=== PATIENT | female | born 1990 | race Caucasian/White ===

== ENCOUNTER 2019-11-26 08:49 | Inpatient (IN) ==
[2019-11-26] MEDS ORDERED: OXYTOCIN 30 UNITS/500 ML BAG IV PRN ×3 (14:04→21:29)
[2019-11-26 14:30] LABS: Hematocrit (blood only) 39.6 % (37-47); Hemoglobin 14.2 g/dL (12.0-16.0); Mean Corpuscular Hemoglobin 30.5 pg (25-34); Mean Corpuscular Volume 85.2 fL (80-100); Mean Platelet Volume 9.9 fL (7.4-10.4); Platelet Count 279 K/uL (130-400); RDW Coefficient of Variation 13.6 % (11.5-14.5); RDW Standard Deviation 42.2 fL (36.4-46.3); Red Blood Count 4.65 M/uL (4.2-5.4); White Blood Count 16.76 K/uL (4.8-10.8)
[2019-11-26 14:37] LABS: Mean Corpuscular Hgb Conc 35.9 g/dL (32-36)
[2019-11-26] MEDS: LACTATED RINGER'S 1,000 ML IV PRN ×2 (14:50→17:46)
--- NOTE | 2019-11-26 15:17 | History & Physical Report ---
Date of Service November 26, 2019 Assessment & Plan (1) Encounter for supervision of normal in multigravida: (2) Post-dates : admit, iv, labs, pitocin and then plan arom. fhts categ 1 History of Present Illness Chief Complaint: planned induction Primary Care Provider: NO PCP 29yo at 41+wks ega presents to L&D with above cc. Notes intermittent runs of ctx but not consistent. No rom, no vb. +FM. pnc c/b postdates, h/o migraines with aura pnl rh pos, rubella immune, gbs negative obh: x 1 gynh: no stds, normal pap smears pmh: migraines with aura psh: knee surgery, d&c Allergies Allergy/AdvReac Type Severity Reaction Status Date / Time No Known Allergies Allergy Verified 11/24/19 11:08 Home Medications Home Medications Medication Instructions Recorded Confirmed Type prenat.vits,vidya,iba-trxe-niexd 1 tab PO DAILY 05/19/19 11/24/19 History Patient History Family History (Updated 05/26/19 @ 08:01 by Fidelina Melendez) Aunt Breast cancer Grandfather (Paternal) Heart disease Colorectal cancer Hypertension Dyslipidemia Grandmother (Paternal) Heart disease Diabetes Hypertension Dyslipidemia Sister Depression Thyroid disease Grandfather (Maternal) Diabetes Mother Graves disease Rheumatoid arthritis Thyroid disease Grandmother (Maternal) Hypertension Thyroid disease Uncle Cancer Other AA (alcohol abuse) Myocardial infarction Social History (Updated 05/26/19 @ 08:02 by Fidelina Melendez) Preferred Language: Chinese Communication Ability: Effective Beliefs That Will Affect Care: None marital status: Current Living Situation: Spouse Feels Safe at Home: Yes Smoking Status: Never smoker Hx Alcohol Use: Yes Hx Substance Use: No Dental Care, Regularly: Yes Physical Activity Frequency: 1-2 Times per Week Review of Systems as per Subjective / HPI Physical Exam Constitutional: WD/WN, vitals as above Respiratory: normal respiratory effort, lungs clear to auscultation Cardiovascular: Rate/Rhythm: regular rate and regular rhythm Gastrointestinal (Abdomen): soft gravid nt efw 8-9# Musculoskeletal: no edema nontender calves Neurologic: grossly normal Psychiatric: A+Ox3, euthymic affect Genitourinary: Manual OB Exam: + cervical dilation 3 cm, + cervical effacement 50% and + station -2 OB Exam Monitor Tracing: + external FHT monitor used (140 mod variability), + external uterine monitor used (q3), + category I and + normal FHT variability Results & Data Vital Signs (Past 12 Hours) Vital Signs Pulse BP 11/26/19 14:52 104 H 134/75 11/26/19 14:10 123 H 137/76 Code Status & VTE Plan VTE Prophylaxis Plan VTE Prophylaxis will be ordered: No Coding Level of Care Code None Diagnoses Encounter for supervision of normal in multigravida Z34.80 Post-dates O48.0
--- NOTE | 2019-11-26 16:54 | Labor Progress Brief Note ---
Date of Service November 26, 2019 Subjective Reason For Note: Routine Evaluation feeling ctx, on pit Assessment & Plan (1) Post-dates : (2) Encounter for supervision of normal in multigravida: (3) Encounter for induction of labor: pitocin infusing, not sure if successful arom, cont with induction. pt may desire epidural soon which is ok. Physical Exam Constitutional: WD/WN, vitals as above Neurologic: grossly normal Psychiatric: A+Ox3, euthymic affect Genitourinary: Manual OB Exam: + cervical dilation 3 cm, + cervical effacement 50%, + station -2 and + amniotic fluid (attempted arom, little result) OB Exam Monitor Tracing: + external FHT monitor used (130 mod variability), + external uterine monitor used (q1-3, pit at 3), + category I and + normal FHT v ariability Results & Data Vital Signs (Past 12 Hours) Vital Signs Temp Pulse Resp BP 11/26/19 16:49 100 H 119/67 11/26/19 15:49 95 H 130/72 11/26/19 14:52 104 H 134/75 11/26/19 14:45 99.0 F 104 H 18 134/75 11/26/19 14:10 123 H 137/76 Coding Level of Care Code None Diagnoses Post-dates O48.0 Encounter for supervision of normal in multigravida Z34.80 Encounter for induction of labor Z34.90
[2019-11-26] MEDS ORDERED: fentaNYL citrate 100 MCG/2 ML VIAL ONE (16:55)
[2019-11-26] MEDS ORDERED: BUPIVACAINE 0.25% 30 ML VIAL ONE (16:55)
[2019-11-26] MEDS ORDERED: ePHEDrine sulfate 50 MG/ML AMP ONE (16:55)
[2019-11-26] MEDS ORDERED: fentaNYL 2MCG/ML ROPIV 1.25MG/ML 100 ML BAG EPI ONE (16:56)
--- NOTE | 2019-11-26 17:13 | Anesthesiology Consultation ---
Date of Service November 26, 2019 Assessment & Plan (1) Encounter for pre-operative examination: Chart Review Chart Review: Acceptable Risk for Labor Epidural Consults Requested none ASA ASA2 Proposed Anesthesia Anesthesia Type: Labor Epidural Risk / Benefits Reviewed With: PT / POA / Parent / Guardian, Accepts Plan and Informed Consent Obtained History Height/Weight Height: 5 ft 8 in Weight: 92.986 kg Allergies Allergy/AdvReac Type Severity Reaction Status Date / Time No Known Allergies Allergy Verified 11/24/19 11:08 Medications Home Medications Medication Instructions Recorded Confirmed Last Taken prenat.vits,vidya,duv-qtcf-vllur 1 tab PO DAILY 05/19/19 11/26/19 11/25/19 23:00 Active Medications Generic Name Dose Route Start Last Admin Trade Name Freq PRN Reason Stop Dose Admin Lactated Ringer's 1,000 mls @ 125 mls/hr 11/26/19 14:04 11/26/19 16:45 Lr IV 11/28/19 14:03 999 mls/hr .Q8H PRN Infusion L&D Protocol Protocol Oxytocin 30 units in 500 mls @ 3 mls/hr 11/26/19 14:04 11/26/19 16:15 Pitocin IV 11/28/19 14:03 0.18 units/hr .Q24H PRN 3 mls/hr Labor Induction/Augmentation Titration Protocol 0.18 UNITS/HR Past Medical History Medical History Anxiety H/O urinary tract infection Migraine with aura No significant past medical history Exercise / Class Metabolic Activity II 4-5 Yardwork/Stairs/Walk up hill Past Family History Family History Aunt Breast cancer Grandfather (Paternal) Heart disease Colorectal cancer Hypertension Dyslipidemia Grandmother (Paternal) Heart disease Diabetes Hypertension Dyslipidemia Sister Depression Thyroid disease Grandfather (Maternal) Diabetes Mother Graves disease Rheumatoid arthritis Thyroid disease Grandmother (Maternal) Hypertension Thyroid disease Uncle Cancer Other AA (alcohol abuse) Myocardial infarction Past Surgical History Surgical History History of arthroscopic knee surgery B/L S/P dilatation and curettage Past Anesthesia History No Hx of Anesthesia Complications and No Family Hx of Anesthesia Complications History of PONV No Hx of PONV and No Hx of Motion Sickness Social History Smoking Status: Never smoker Do You Dip or Chew Tobacco: No Hx Alcohol Use: Yes alcohol intake frequency: holidays/special occasions only Hx Substance Use: No Physical Exam Vital Signs Last Vital Signs Temp 99.0 F 11/26/19 14:45 Pulse 93 H 11/26/19 16:51 Resp 18 11/26/19 14:45 BP 118/61 11/26/19 16:51 ENMT Mouth: no dentition abnormality Thyromental Distance: > or= 3.5 Finger Breadths Mallampati Class: II Neck normal visual inspection Respiratory normal respiratory effort Auscultation: lungs clear to auscultation bilaterally Cardiovascular Rate/Rhythm: regular rate and regular rhythm Testing Laboratory Results 11/26/19 14:13
[2019-11-26] MEDS ORDERED: NALOXONE HCL 1 MG in SODIUM CHLORIDE 0.9% 1000ML 1,000 ML IV PRN (17:31)
[2019-11-26] MEDS ORDERED: ePHEDrine sulfate 50 MG/ML AMP IV PRN (17:31)
[2019-11-26] MEDS ORDERED: NALOXONE HCL 0.4 MG/1 ML VIAL/CARP IV PRN (17:31)
[2019-11-26] MEDS ORDERED: fentaNYL 2MCG/ML ROPIV 1.25MG/ML 100 ML BAG EPI PRN (17:31)
[2019-11-26] MEDS ORDERED: NALBUPHINE HCL INJ 10 MG/ML AMP IV PRN (17:31)
[2019-11-26] MEDS ORDERED: ONDANSETRON INJ 2 MG/ML 2 ML VIAL IV PRN (17:31)
[2019-11-26] MEDS ORDERED: DiphenhydrAMINE HCL 50 MG/ML VIAL IV PRN (17:31)
[2019-11-26] MEDS ORDERED: OXYCODONE/ACETAMINOPHEN 5mg/325mg TAB PO PRN (21:16)
[2019-11-26] MEDS ORDERED: ACETAMINOPHEN 325 MG TAB PO PRN (21:16)
--- NOTE | 2019-11-26 21:19 | Delivery Summary ---
Vaginal Delivery Summary Date of Service November 26, 2019 The patient dilated to complete and pushed to deliver a viable male infant s 8 and 9 via from ROP position over 2nd degree perineal laceration. Mouth and nose bulb suctioned at perineum. Shoulders and body delivered with ease. was vigorous and crying at . Cord clamped at 30 seconds of life and to maternal abdomen where the cord was then doubly clamped and cut. Placenta delivered spontaneously and intact, three-vessel cord. Hemostasis achieved with dilute pitocin and uterine massage and drainage of the bladder for approximately 100 cc under sterile conditions. IV site lost and so IM pitocin administered. Laceration repaired in usual fashion with 3-0 vicryl after additional 1% local lidocaine administered for anesthesia. Cervix and sulci intact. EBL 300 cc. Mother and baby stable in recovery.
[2019-11-26] MEDS ORDERED: HYDROCORTISONE ACETATE 25 MG SUPP PR PRN (21:29)
[2019-11-26] MEDS ORDERED: BENZOCAINE 20% AER SPR 82.5 GM CAN EXT PRN (21:29)
[2019-11-26] MEDS ORDERED: OXYTOCIN 10 UNITS/ML VIAL IM ONE (21:29)
[2019-11-26] MEDS ORDERED: SUPERCREAM 0.870% 15 GM JAR EXT PRN (21:29)
[2019-11-26] MEDS ORDERED: DIPHTHERIA/TETANUS/PERTUSSIS 0.5 ML SYR/VIAL IM ONE (21:29)
[2019-11-26] MEDS: IBUPROFEN 600 MG TAB PO PRN (21:35)
--- NOTE | 2019-11-26 21:42 | Anesthesia Procedure Note ---
Date of Service November 26, 2019 Anesthesia Post Epidural Note Vital Signs Vital Signs: Temp Pulse Resp BP Pulse Ox 98.8 F 75 20 106/53 L 98 11/26/19 19:20 11/26/19 21:40 11/26/19 21:41 11/26/19 21:40 11/26/19 20:57 Pain Intensity Lower Abdomen: Pain Intensity: 0 Episiotomy/Laceration: Pain Intensity: 2 Notes Mental Status: alert / awake / arousable and participated in evaluation Nausea / Vomiting: adequately controlled Pain: adequately controlled Airway Patency, RR, SpO2: stable & adequate BP & HR: stable & adequate Hydration State: stable & adequate Neuraxial Anesthesia: was administered and sensory block is resolving Anesthetic Complications: no major complications apparent and Pt Satisfied with anesthetic care Epidural: Removed without complications and With tip intact
--- NOTE | 2019-11-27 06:57 | Obstetrical Progress Note ---
Date of Service November 27, 2019 Assessment & Plan (1) Normal delivery at term: stable, routine pp care. , rhpos, rubella immune Subjective Ambulation: ambulating normally Voiding: no voiding problems Diet Tolerance:: regular diet Lochia:: Small Feeding Type:: breast feeding no complaints. Physical Exam Constitutional WD/WN, vitals as above Respiratory normal respiratory effort, lungs clear to auscultation Cardiovascular Rate/Rhythm: regular rate and regular rhythm Gastrointestinal (Abdomen) Inspection/Auscultation: abdomen normal to inspection Percussion/Palpation: abdomen soft Fundus firm 1cm down Musculoskeletal nt calves trace edema Neurologic grossly normal Psychiatric A+Ox3, euthymic affect Results & Data Vital Signs (Past 12 Hours) Vital Signs Temp Pulse Pulse Resp BP BP Pulse Ox 11/27/19 03:33 98.1 F 71 18 107/68 11/27/19 00:30 98.1 F 71 18 107/67 11/26/19 23:10 98.6 F 83 18 115/57 L 11/26/19 22:55 75 116/55 L 11/26/19 22:40 18 117/60 11/26/19 22:25 81 120/56 L 11/26/19 22:10 87 18 114/56 L 11/26/19 21:55 68 18 116/58 L 11/26/19 21:41 20 11/26/19 21:40 75 20 106/53 L 11/26/19 21:25 74 20 108/61 11/26/19 21:10 89 20 114/54 L 11/26/19 21:00 118 H 121/58 L 11/26/19 20:57 125 H 98 11/26/19 20:52 125 H 98 11/26/19 20:47 119 H 98 11/26/19 20:44 100 H 131/60 11/26/19 20:42 107 H 97 11/26/19 20:37 112 H 99 11/26/19 20:32 126 H 99 11/26/19 20:30 112 H 137/62 11/26/19 20:27 108 H 99 11/26/19 20:22 126 H 97 11/26/19 20:21 133 H 88 L 11/26/19 20:17 111 H 98 11/26/19 20:12 116 H 98 11/26/19 20:07 91 H 99 11/26/19 20:02 111 H 98 11/26/19 20:00 110 H 130/59 L 11/26/19 19:57 106 H 100 11/26/19 19:52 99 H 99 11/26/19 19:47 85 100 11/26/19 19:45 98 H 144/64 H 11/26/19 19:42 93 H 100 11/26/19 19:37 90 99 11/26/19 19:32 86 100 11/26/19 19:31 80 18 120/60 11/26/19 19:27 81 99 11/26/19 19:22 87 99 11/26/19 19:20 98.8 F 11/26/19 19:17 75 99 11/26/19 19:16 77 18 123/57 L 11/26/19 19:12 78 100 11/26/19 19:10 83 112/65 11/26/19 19:07 77 99 11/26/19 19:04 72 107/53 L 11/26/19 19:02 75 100 11/26/19 18:59 79 114/54 L 11/26/19 18:57 84 100
[2019-11-27] MEDS: DOCUSATE SODIUM 100 MG CAP PO SCH ×2 (07:43→20:58)
[2019-11-27] MEDS: IBUPROFEN 600 MG TAB PO PRN (11:49)
--- NOTE | 2019-11-28 06:20 | Obstetrical Progress Note ---
Date of Service November 28, 2019 Assessment & Plan (1) Status post vaginal delivery: Margaret is a 29 yo on PPD 2 after at 41w - GBS -, Rh+ Rubella immune -Vitals reviewed and WNL -patient is doing clinically well discharge instructions reviewed. - After discharge will have [address] Brandon. Supervising Physician Co-Signing Physician Notes Resident Physician Supervision Note: I was present with Dr. Sawyer during the history and exam. I discussed the case with the resident and agree with the findings and plan as documented in the note. Any exceptions or clarifications are listed here: PPD#2 doing well. DC home. Instructions reviewed. Followup 6w . Documented By: Anita Dial DO Subjective Ambulation: ambulating normally Voiding: no voiding problems Passing Gas:: Yes Diet Tolerance:: regular diet Lochia:: Small Feeding Type:: breast feeding Review of Systems Constitutional: no fever, no chills and no sweats Eyes: no worsening vision Respiratory: no cough and no dyspnea Cardiovascular: no chest pain, no palpitations, no edema and no calf pain Gastrointestinal: no nausea and no vomiting Genitourinary: no dysuria and no urinary frequency Neurologic: no headache(s) Physical Exam Constitutional: WD/WN, vitals as above no acute distress Respiratory: normal respiratory effort, lungs clear to auscultation does not use accessory muscles Auscultation: no crackles, no rales, no rhonchi, no wheezes and no pleural rub Cardiovascular: Rate/Rhythm: regular rate and regular rhythm Heart Sounds: normal S1 and normal S2; no gallop, no murmur and no cardiac rub Extremities: no calf tenderness and no pedal edema Gastrointestinal (Abdomen): Inspection/Auscultation: normal bowel sounds; abdomen not distended Percussion/Palpation: abdomen soft Genitourinary: Uterus: fundus firm, palpable 2 cm below the umbilicus Results & Data Vital Signs (Past 12 Hours) Vital Signs Temp Pulse Resp BP BP Pulse Ox 11/27/19 23:15 36.3 C L 80 18 119/77 99 11/27/19 20:00 36.7 C 81 20 122/81 Resident Activity Tracking Resident Involvement: Resident Care Provided Care Provided: OB Delivery
[2019-11-28] MEDS: DOCUSATE SODIUM 100 MG CAP PO SCH (08:25)
== END 2019-11-28 14:20 | disposition home or self-care (01) | DRG 807 ==
LOC: 4S1 14:01 → 4S2 23:40

== ENCOUNTER 2025-06-30 10:06 | Inpatient (IN) ==
[2025-06-30 12:01] LABS: Hematocrit (blood only) 38.3 % (37.0-47.0); Hemoglobin 13.1 g/dl (12.0-16.0); Immature Granulocytes # (auto) 0.13 K/uL (0.01-0.20); Immature Granulocytes % (auto) 1.0 %; Mean Corpuscular Hemoglobin 29.2 pg (25.0-34.0); Mean Corpuscular Volume 85.5 fL (80.0-100.0); Platelet Count 266 K/uL (130-400); RDW Standard Deviation 43.2 fL (36.4-46.3); Red Blood Count 4.48 M/uL (4.20-5.40); White Blood Count 13.34 K/ul (4.8-10.8)
[2025-06-30 12:11] LABS: Protein Creatinine Ratio Urine 0.2 (0-0.2); Total Protein Urine Random 8.7 mg/dl (0-11.9)
[2025-06-30 12:27] LABS: Alanine Aminotransferase 10.0 U/L (7-52); Albumin Globulin Ratio 1.0 (0.9-2); Alkaline Phosphatase 138.0 U/L (34-104); Anion Gap 7.0 (3-11); Bilirubin,Total 0.5 mg/dl (0.2-1.0); Blood Urea Nitrogen 9.0 mg/dl (6-23); Calcium 9.2 mg/dl (8.6-10.3); Carbon Dioxide 23.0 mmol/L (21-32); Chloride 106.0 mmol/L (98-107); Creatinine Clr Calc Pharmacy 163.1 ml/min; Globulin 3.5 gm/dl (2.5-4.0); Glucose 84.0 mg/dl (70-99(Fasting)); Potassium 3.8 mmol/L (3.5-5.1); Sodium 136.0 mmol/L (136-145); Total Protein 7.0 gm/dl (6.0-8.3)
[2025-06-30] MEDS ORDERED: OXYTOCIN 30 UNITS/NSS 30 UNITS/500 ML BAG IV PRN (14:45)
[2025-06-30] MEDS ORDERED: LIDOCAINE 1% LOCAL 20 ML VIAL INFIL PRN (14:45)
--- NOTE | 2025-06-30 14:53 | Labor Progress Brief Note ---
Date of Service June 30, 2025 Subjective @ 38w5d sent from office this AM due to elevated BP. Her pressures were noted to occur in the setting of severe anxiety and are NOT accompanied by HOWELL, RUQ pain, N/V, vision change, or edema. c/b AMA, Polyhydramnios, anatomy showing ?enlarged heart without hydrops, considered a normal variant per MFM and was cleared to deliver at [facility]. Patient had reassuring PIH labs here at L&D, however monitoring of BP showed persistent HTN at least 4 hours apart. She was counseled on diagnosis of gHTN at term, though she and I both suspect she is hypertensive due to her severe worries about herself and baby rather than because of a true preeclampsia-spectrum condition. She notes "I'm scared I will or my baby will and I just want to know we will both get to go home alive together." Her relates that anxiety is a challenge the patient has with each , and this time has been particularly bad. Her record also indicates this has been a discussion at several prior visits. We discussed pros and cons of following the recommendation for induction given her diagnosis and gestational age. She views induction favorably and would like to proceed today. She asks that we wait to begin induction until her returns from going home to arrange childcare and other necessary errands, as she has had rapid progress with prior labors. Assessment & Plan (1) Polyhydramnios: (2) Elderly multigravida: (3) Gestational hypertension: Physical Exam Constitutional: WD/WN, vitals as above Neck: supple Respiratory: normal respiratory effort and able to speak in complete sentences; no respiratory distress Cardiovascular: Rate/Rhythm: regular rate and regular rhythm Gastrointestinal (Abdomen): Gravid / AGA, nontender Musculoskeletal: no cyanosis or clubbing, extremities motor strength 5/5 Skin: no rashes, warm and dry Neurologic: patellar DTR's 2+ bilat, sensation intact Psychiatric: A+Ox3, euthymic affect Genitourinary: FHT Cat 1 [place] T4-5 or further apart, not appreciated by patient Cvx 3/50/-2 Membranes intact Vtx presentation Results & Data Vital Signs (Past 12 Hours) Vital Signs Temp Pulse Resp BP 06/30/25 13:37 92 H 143/77 H 06/30/25 13:17 115 H 147/74 H 06/30/25 12:54 108 H 157/74 H 06/30/25 12:39 104 H 134/77 06/30/25 12:24 104 H 147/80 H 06/30/25 12:09 104 H 140/80 06/30/25 11:54 108 H 156/81 H 06/30/25 11:05 107 H 139/86 06/30/25 10:58 98.6 F 120 H 18 131/83 06/30/25 10:33 100 H 141/83 H 06/30/25 10:18 120 H 131/83 Coding Level of Care Code None Diagnoses Polyhydramnios O40.9XX0 Elderly multigravida O09.529 Gestational hypertension O13.9
[2025-06-30] MEDS: LACTATED RINGER'S 1,000 ML IV PRN (16:30)
[2025-06-30] MEDS: OXYTOCIN 30 UNITS/NSS 30 UNITS/500 ML BAG IV PRN (17:31)
[2025-06-30] MEDS: fentANYL 2 MCG/ML BUPIVacaine 0.125%-NSS 100ML BAG ONE (19:54)
[2025-06-30] MEDS ORDERED: fentANYL 2 MCG/ML BUPIVacaine 0.125%-NSS 100ML BAG EPI PRN (20:08)
[2025-06-30] MEDS ORDERED: LIDOCAINE 2%/EPINEPHRINE 1:200,000 20 ML PF EPI STA (20:08)
[2025-06-30] MEDS ORDERED: ROPIVACAINE 0.5% PF 5 MG/ML 20 ML VIAL EPI PRN (20:08)
[2025-06-30] MEDS ORDERED: SODIUM CHLORIDE 0.9% PF INJ 10 ML VIAL EPI STA (20:08)
[2025-06-30] MEDS ORDERED: NALOXONE HCL 1 MG in SODIUM CHLORIDE 0.9% 1,000 ML IV PRN (20:08)
[2025-06-30] MEDS ORDERED: BUPIVACAINE 0.25% PF 30 ML VIAL EPI STA (20:08)
[2025-06-30] MEDS: SODIUM CHLORIDE 0.9% PF INJ 10 ML VIAL ONE (20:08)
[2025-06-30] MEDS: BUPIVACAINE 0.25% PF 30 ML VIAL ONE (20:08)
[2025-06-30] MEDS ORDERED: SODIUM CHLORIDE 0.9% PF INJ 10 ML VIAL EPI PRN (20:08)
[2025-06-30] MEDS ORDERED: diphenhydrAMINE 50 MG/ML VIAL IV PRN (20:08)
[2025-06-30] MEDS ORDERED: NALOXONE HCL 0.4 MG/1 ML VIAL/CARP IV PRN (20:08)
[2025-06-30] MEDS ORDERED: LIDOCAINE 2% MPF LOCAL 5 ML VIAL EPI PRN (20:08)
[2025-06-30] MEDS ORDERED: PROMETHAZINE 6.25 MG/50.25 ML BAG IV PRN (20:08)
[2025-06-30] MEDS ORDERED: NALBUPHINE HCL INJ 10 MG/ML AMP IV PRN (20:08)
[2025-06-30] MEDS: LIDOCAINE 2%/EPINEPHRINE 1:200,000 20 ML PF ONE (20:08)
[2025-06-30] MEDS ORDERED: ONDANSETRON INJ 2 MG/ML 2 ML VIAL IV PRN (20:08)
[2025-06-30] MEDS ORDERED: BUPIVACAINE 0.25% PF 30 ML VIAL EPI PRN (20:08)
--- NOTE | 2025-06-30 20:08 | Anesthesiology Consultation ---
Date of Service June 30, 2025 Assessment & Plan Chart Review Chart Review: Patient NOT seen in Pre Admission Testing and Acceptable Risk for Labor Epidural Consults Requested none ASA ASA2 Proposed Anesthesia Anesthesia Type: Labor Epidural Risk / Benefits Reviewed With: PT / POA / Parent / Guardian, Accepts Plan and Informed Consent Obtained History Height/Weight Height: 5 ft 8 in Weight: 91.626 kg Allergies Allergy/AdvReac Type Severity Reaction Status Date / Time No Known Allergies Allergy Verified 06/30/25 08:28 Medications Home Medications Medication Instructions Recorded Confirmed Last Taken 21-iron fu-folic acid PO 12/09/24 06/30/25 Unknown [ Complete] sertraline 50 mg tablet 50 mg PO DAILY #90 tabs 01/07/25 06/30/25 Unknown Active Medications Generic Name Dose Route Start Last Admin Trade Name Freq PRN Reason Stop Dose Admin Lactated Ringer's 1,000 mls @ 125 mls/hr 06/30/25 14:45 06/30/25 16:30 Lr IV 07/02/25 14:44 125 mls/hr .Q8H PRN Administration L&D Protocol Protocol Oxytocin 30 units in 500 mls @ 6 mls/hr 06/30/25 14:45 06/30/25 19:00 Pitocin 30 Units/Nss IV 07/02/25 14:44 0.36 units/hr .Q24H PRN 6 mls/hr Labor Induction/Augmentation Titration Protocol 0.36 UNITS/HR Past Medical History Medical History (Updated 06/30/25 @ 14:53 by Vickie Mendenhall MD) History of benign breast biopsy Exercise / Class Metabolic Activity II 4-5 Yardwork/Stairs/Walk up hill Past Family History Family History Aunt Breast cancer Grandfather (Paternal) Heart disease Colorectal cancer Hypertension Dyslipidemia Grandmother (Paternal) Heart disease Diabetes Hypertension Dyslipidemia Sister Depression Thyroid disease Grandfather (Maternal) Diabetes Mother Graves disease Rheumatoid arthritis Thyroid disease Pre-diabetes Grandmother (Maternal) Hypertension Thyroid disease Uncle Cancer Other AA (alcohol abuse) Myocardial infarction Denies family history of Ovarian cancer Prostate cancer Past Surgical History Surgical History (Updated 06/30/25 @ 14:21 by Jeannie Edwards RN) S/P dilatation and curettage History of arthroscopic knee surgery B/L Past Anesthesia History No Hx of Anesthesia Complications and No Family Hx of Anesthesia Complications History of PONV No Hx of PONV and No Hx of Motion Sickness Social History Smoking Status: Never smoker Do You Dip or Chew Tobacco: No Hx Alcohol Use: No alcohol intake frequency: holidays/special occasions only Hx Substance Use: No Physical Exam Vital Signs Last Vital Signs Temp 37.0 C 06/30/25 10:58 Pulse 129 H 06/30/25 20:06 Resp 18 06/30/25 18:45 BP 119/58 L 06/30/25 20:06 Pulse Ox 98 06/30/25 20:02 ENMT Mouth: no dentition abnormality Thyromental Distance: > or= 3.5 Finger Breadths Mallampati Class: II Neck normal visual inspection Respiratory normal respiratory effort Auscultation: lungs clear to auscultation bilaterally Cardiovascular Rate/Rhythm: regular rate and regular rhythm Psychiatric Orientation: alert Testing Laboratory Results 06/30/25 11:33 06/30/25 11:33 Blood Type O Positive 06/30/25 11:43 Antibody Screen NEGATIVE 06/30/25 11:43
--- NOTE | 2025-06-30 20:10 | Anesthesiology Consultation ---
Date of Service June 30, 2025 Assessment & Plan Chart Review Chart Review: Patient NOT seen in Pre Admission Testing and Acceptable Risk for Labor Epidural Consults Requested none ASA ASA2 Proposed Anesthesia Anesthesia Type: Labor Epidural History Height/Weight Height: 5 ft 8 in Weight: 91.626 kg Allergies Allergy/AdvReac Type Severity Reaction Status Date / Time No Known Allergies Allergy Verified 06/30/25 08:28 Medications Home Medications Medication Instructions Recorded Confirmed Last Taken 21-iron fu-folic acid PO 12/09/24 06/30/25 Unknown [ Complete] sertraline 50 mg tablet 50 mg PO DAILY #90 tabs 01/07/25 06/30/25 Unknown Active Medications Generic Name Dose Route Start Last Admin Trade Name Freq PRN Reason Stop Dose Admin Lactated Ringer's 1,000 mls @ 125 mls/hr 06/30/25 14:45 06/30/25 16:30 Lr IV 07/02/25 14:44 125 mls/hr .Q8H PRN Administration L&D Protocol Protocol Oxytocin 30 units in 500 mls @ 6 mls/hr 06/30/25 14:45 06/30/25 19:00 Pitocin 30 Units/Nss IV 07/02/25 14:44 0.36 units/hr .Q24H PRN 6 mls/hr Labor Induction/Augmentation Titration Protocol 0.36 UNITS/HR Past Medical History Medical History (Updated 06/30/25 @ 14:53 by Vickie Mendenhall MD) History of benign breast biopsy Past Family History Family History Aunt Breast cancer Grandfather (Paternal) Heart disease Colorectal cancer Hypertension Dyslipidemia Grandmother (Paternal) Heart disease Diabetes Hypertension Dyslipidemia Sister Depression Thyroid disease Grandfather (Maternal) Diabetes Mother Graves disease Rheumatoid arthritis Thyroid disease Pre-diabetes Grandmother (Maternal) Hypertension Thyroid disease Uncle Cancer Other AA (alcohol abuse) Myocardial infarction Denies family history of Ovarian cancer Prostate cancer Past Surgical History Surgical History (Updated 06/30/25 @ 14:21 by Jeannie Edwards RN) S/P dilatation and curettage History of arthroscopic knee surgery B/L Social History Smoking Status: Never smoker Do You Dip or Chew Tobacco: No Hx Alcohol Use: No alcohol intake frequency: holidays/special occasions only Hx Substance Use: No Physical Exam Vital Signs Last Vital Signs Temp 37.0 C 06/30/25 10:58 Pulse 111 H 06/30/25 20:09 Resp 18 06/30/25 18:45 BP 128/62 06/30/25 20:09 Pulse Ox 98 06/30/25 20:07 ENMT Mouth: no dentition abnormality Thyromental Distance: > or= 3.5 Finger Breadths Mallampati Class: II Neck normal visual inspection Respiratory normal respiratory effort Auscultation: lungs clear to auscultation bilaterally Cardiovascular Rate/Rhythm: regular rate and regular rhythm Psychiatric Orientation: alert Testing Laboratory Results 06/30/25 11:33 06/30/25 11:33 Blood Type O Positive 06/30/25 11:43 Antibody Screen NEGATIVE 06/30/25 11:43
--- NOTE | 2025-06-30 22:09 | Labor Progress Brief Note ---
Date of Service June 30, 2025 Subjective Comfortable with epidural. Assessment & Plan (1) Gestational hypertension: Plan: Labor progressing. Known poly, AMA, gHTN. Admission and Anticipated Discharge Date Admission Date: June 30, 2025 Physical Exam Genitourinary: Generous forebag noted; AROM of this bag resulted in copious clear fluid spilling beyond bed onto floor. No cord or palpable prolapsed part; vertex well applied at end of exam. Following AROM and during a contraction, exam FHT Cat 1 [place] Q2m FSE applied Results & Data Vital Signs (Past 12 Hours) Vital Signs Temp Pulse Resp BP Pulse Ox 06/30/25 21:57 89 99 06/30/25 21:52 85 98 06/30/25 21:48 83 137/67 06/30/25 21:47 91 H 98 06/30/25 21:42 94 H 98 06/30/25 21:37 104 H 97 06/30/25 21:33 96 H 114/58 L 06/30/25 21:32 86 97 06/30/25 21:27 90 96 06/30/25 21:22 85 97 06/30/25 21:17 95 H 111/60 97 06/30/25 21:12 86 98 06/30/25 21:07 82 98 06/30/25 21:03 96 H 107/58 L 06/30/25 21:02 92 H 98 06/30/25 20:57 92 H 97 06/30/25 20:52 106 H 97 06/30/25 20:48 102 H 118/60 06/30/25 20:47 104 H 98 06/30/25 20:42 95 H 99 06/30/25 20:37 107 H 99 06/30/25 20:33 107 H 132/67 06/30/25 20:32 106 H 98 06/30/25 20:27 94 H 99 06/30/25 20:22 102 H 98 06/30/25 20:17 97 H 98 06/30/25 20:15 98.8 F 109 H 16 112/58 L 06/30/25 20:12 99 06/30/25 20:12 84 06/30/25 20:12 101 H 120/62 06/30/25 20:09 111 H 128/62 06/30/25 20:07 99 H 98 06/30/25 20:06 129 H 119/58 L 06/30/25 20:03 125 H 120/57 L 06/30/25 20:02 120 H 98 06/30/25 20:00 123 H 131/65 06/30/25 19:57 95 H 99 06/30/25 19:52 88 99 06/30/25 19:51 99 H 149/84 H 06/30/25 19:47 100 H 100 06/30/25 18:45 18 06/30/25 18:45 18 06/30/25 18:30 18 06/30/25 18:30 18 06/30/25 18:28 86 115/56 L 06/30/25 18:00 18 06/30/25 18:00 18 06/30/25 17:30 18 06/30/25 17:30 18 06/30/25 16:52 115 H 139/61 06/30/25 16:30 18 06/30/25 16:30 18 06/30/25 16:00 18 06/30/25 16:00 18 06/30/25 15:30 18 06/30/25 15:30 18 06/30/25 15:00 20 06/30/25 15:00 20 06/30/25 13:37 92 H 143/77 H 06/30/25 13:17 115 H 147/74 H 06/30/25 12:54 108 H 157/74 H 06/30/25 12:39 104 H 134/77 06/30/25 12:24 104 H 147/80 H 06/30/25 12:09 104 H 140/80 06/30/25 11:54 108 H 156/81 H 06/30/25 11:05 107 H 139/86 06/30/25 10:58 98.6 F 120 H 18 131/83 06/30/25 10:33 100 H 141/83 H 06/30/25 10:18 120 H 131/83 Coding Level of Care Code None Diagnoses Gestational hypertension O13.9
--- NOTE | 2025-07-01 01:21 | Delivery Summary ---
Vaginal Delivery Summary Date of Service July 01, 2025 Vaginal Delivery Summary DIAGNOSES: 1. Neri intrauterine at 38w6d gestation. 2. Induction of Labor for Gestational Hypertension. 3. Group B Streptococcus Neg. PROCEDURE: Spontaneous vaginal delivery with repair of second degree laceration. SURGEON: Vickie Mendenhall MD. JANITORIAL MANAGER: None. ESTIMATED BLOOD LOSS: 150 mL. COMPLICATIONS: None. PLACENTA: Spontaneous and intact with a 3-vessel cord. DISPOSITION: Stable to labor and delivery. DESCRIPTION: The patient pushed well and brought the head to in OA position. The infant's head was allowed to deliver with contraction force and no further active pushing, with the perineum protected during this time. There was one loop of nuchal cord. The right shoulder was anterior. The shoulders and body delivered without any difficulty, and the infant was placed on the maternal abdomen. It was vigorous and moving all extremities, and making respiratory efforts. The cord was doubly clamped by the MD and then cut by the FOB. The placenta delivered spontaneously and was noted to be intact and with a 3VC. The cervix, vagina and perineum were examined and were found to have a second-degree laceration which was repaired in the usual manner with vicryl suture, including a crown stitch to rebuild the perineal body. The fundus was firm and lochia minimal immediately after delivery. [facility] Vaginal Delivery Charge Vaginal Delivery Codes: 54803 global code for the antepartum, delivery, and post-
--- NOTE | 2025-07-01 01:39 | Anesthesia Procedure Note ---
Date of Service July 01, 2025 Anesthesia Post Epidural Note Vital Signs Vital Signs: Temp Pulse Resp BP Pulse Ox 37.1 C 91 H 18 122/58 L 96 06/30/25 22:30 07/01/25 01:37 06/30/25 22:30 07/01/25 01:28 07/01/25 01:37 Notes Mental Status: alert / awake / arousable Nausea / Vomiting: adequately controlled Pain: adequately controlled Airway Patency, RR, SpO2: stable & adequate BP & HR: stable & adequate Hydration State: stable & adequate Neuraxial Anesthesia: was administered and sensory block is resolving Anesthetic Complications: no major complications apparent and Pt Satisfied with anesthetic care Epidural: Removed without complications and With tip intact
[2025-07-01] MEDS ORDERED: OXYTOCIN 30 UNITS/NSS 30 UNITS/500 ML BAG IV PRN (02:49)
[2025-07-01] MEDS ORDERED: HYDROCORTISONE ACETATE 25 MG SUPP PR PRN (02:49)
[2025-07-01] MEDS ORDERED: DIPHTHER/TETAN/PERTUS Vaccine (Tdap, Adol/Adult) 0.5mL IM ONE (02:49)
[2025-07-01] MEDS: ACETAMINOPHEN 325 MG TAB PO PRN (03:39)
[2025-07-01] MEDS: BENZOCAINE 20% SPRY 85 APPLN/85 GM CAN EXT PRN (03:39)
[2025-07-01] MEDS: IBUPROFEN 600 MG TAB PO PRN (03:39)
[2025-07-01] MEDS: SERTRALINE HCL 50 MG TABLET PO ONE (05:42)
--- NOTE | 2025-07-01 05:58 | Obstetrical Progress Note ---
Date of Service July 01, 2025 Assessment & Plan (1) care following vaginal delivery: Plan -Continue stable and routine care. Breast feeding. Rhesus Positive. Rubella Immune. Monitor. Subjective Ambulation: ambulating normally Voiding: no voiding problems Passing Gas:: Yes Diet Tolerance:: regular diet Lochia:: Small Feeding Type:: breast feeding Current Pain Level(1-10): 0 PPD 1 Review of Systems All systems reviewed & are unremarkable except as noted in HPI & below i. Denies fever, chills, sweats ii. Denies SOB, difficulty breathing, chest pain, palpitations, chest pressure iii. Denies breast pain. iv. Denies Dysuria v. Denies headache or changes in vision. Physical Exam Constitutional WD/WN, vitals as above Respiratory normal respiratory effort, lungs clear to auscultation Cardiovascular RRR, no murmur, no edema Gastrointestinal (Abdomen) normal bowel sounds, soft, nontender, no hepatosplenomegaly Skin no rashes, warm and dry Psychiatric A+Ox3, euthymic affect Genitourinary On palpation of abdomen, fundus is at the level of the umbilicus. Uterus is firm and has begun involution, at approximately 1cm/day. Results & Data Vital Signs (Past 12 Hours) Vital Signs Temp Pulse Pulse Resp BP BP Pulse Ox 07/01/25 04:10 36.5 C 98 H 16 132/74 07/01/25 02:13 100 H 118/58 L 07/01/25 02:12 84 94 07/01/25 02:07 92 H 95 07/01/25 02:02 99 H 95 07/01/25 01:58 100 H 116/62 07/01/25 01:57 96 H 95 07/01/25 01:52 91 H 98 07/01/25 01:47 92 H 97 07/01/25 01:43 83 120/59 L 07/01/25 01:42 82 96 07/01/25 01:37 91 H 96 07/01/25 01:32 91 H 95 07/01/25 01:28 90 122/58 L 07/01/25 01:27 85 96 07/01/25 01:22 94 H 94 07/01/25 01:17 91 H 94 07/01/25 01:13 88 119/57 L 07/01/25 01:12 93 H 95 07/01/25 01:07 98 H 96 07/01/25 01:02 91 H 95 07/01/25 00:58 82 112/58 L 07/01/25 00:57 87 95 07/01/25 00:52 86 94 07/01/25 00:47 89 94 07/01/25 00:43 95 H 118/58 L 07/01/25 00:42 96 H 95 07/01/25 00:37 105 H 96 07/01/25 00:32 89 108/54 L 95 07/01/25 00:29 93 H 112/56 L 94 07/01/25 00:27 95 H 96 07/01/25 00:23 93 H 94 07/01/25 00:22 100 H 96 07/01/25 00:17 98 H 95 07/01/25 00:16 103 H 93 07/01/25 00:12 128 H 97 07/01/25 00:07 101 H 90 07/01/25 00:02 119 H 99 06/30/25 23:57 96 H 98 06/30/25 23:54 114 H 88 L 06/30/25 23:52 99 H 98 06/30/25 23:47 105 H 97 06/30/25 23:45 121 H 130/66 06/30/25 23:42 105 H 98 06/30/25 23:37 100 H 98 06/30/25 23:32 100 H 97 06/30/25 23:27 102 H 97 06/30/25 23:22 87 96 06/30/25 23:17 99 H 97 06/30/25 23:12 92 H 96 06/30/25 23:07 87 97 06/30/25 23:02 96 H 96 06/30/25 22:57 97 H 95 06/30/25 22:52 87 97 06/30/25 22:51 90 93 06/30/25 22:47 82 97 06/30/25 22:42 83 98 06/30/25 22:37 77 97 06/30/25 22:32 78 97 06/30/25 22:30 18 06/30/25 22:30 37.1 C 18 06/30/25 22:29 90 107/53 L 06/30/25 22:27 86 97 06/30/25 22:22 90 96 06/30/25 22:17 84 97 06/30/25 22:12 87 98 06/30/25 22:07 82 97 06/30/25 22:02 86 96 06/30/25 21:57 89 99 06/30/25 21:52 85 98 06/30/25 21:48 83 137/67 06/30/25 21:47 91 H 98 06/30/25 21:42 94 H 98 06/30/25 21:37 104 H 97 06/30/25 21:33 96 H 114/58 L 06/30/25 21:32 86 97 06/30/25 21:27 90 96 06/30/25 21:22 85 97 06/30/25 21:17 95 H 111/60 97 06/30/25 21:12 86 98 06/30/25 21:07 82 98 06/30/25 21:03 96 H 107/58 L 06/30/25 21:02 92 H 98 06/30/25 20:57 92 H 97 06/30/25 20:52 106 H 97 06/30/25 20:48 102 H 118/60 06/30/25 20:47 104 H 98 06/30/25 20:42 95 H 99 06/30/25 20:37 107 H 99 06/30/25 20:33 107 H 132/67 06/30/25 20:32 106 H 98 06/30/25 20:27 94 H 99 06/30/25 20:22 102 H 98 06/30/25 20:17 97 H 98 06/30/25 20:15 37.1 C 109 H 16 112/58 L 06/30/25 20:12 99 06/30/25 20:12 84 06/30/25 20:12 101 H 120/62 06/30/25 20:09 111 H 128/62 06/30/25 20:07 99 H 98 06/30/25 20:06 129 H 119/58 L 06/30/25 20:03 125 H 120/57 L 06/30/25 20:02 120 H 98 06/30/25 20:00 123 H 131/65 06/30/25 19:57 95 H 99 06/30/25 19:52 88 99 06/30/25 19:51 99 H 149/84 H 06/30/25 19:47 100 H 100 06/30/25 18:45 18 06/30/25 18:45 18 06/30/25 18:30 18 06/30/25 18:30 18 06/30/25 18:28 86 115/56 L 06/30/25 18:00 18 06/30/25 18:00 18 O2 Del Method 07/01/25 04:10 Room Air 07/01/25 02:13 07/01/25 02:12 07/01/25 02:07 07/01/25 02:02 07/01/25 01:58 07/01/25 01:57 07/01/25 01:52 07/01/25 01:47 07/01/25 01:43 07/01/25 01:42 07/01/25 01:37 07/01/25 01:32 07/01/25 01:28 07/01/25 01:27 07/01/25 01:22 07/01/25 01:17 07/01/25 01:13 07/01/25 01:12 07/01/25 01:07 07/01/25 01:02 07/01/25 00:58 07/01/25 00:57 07/01/25 00:52 07/01/25 00:47 07/01/25 00:43 07/01/25 00:42 07/01/25 00:37 07/01/25 00:32 07/01/25 00:29 07/01/25 00:27 07/01/25 00:23 07/01/25 00:22 07/01/25 00:17 07/01/25 00:16 07/01/25 00:12 07/01/25 00:07 07/01/25 00:02 06/30/25 23:57 06/30/25 23:54 06/30/25 23:52 06/30/25 23:47 06/30/25 23:45 06/30/25 23:42 06/30/25 23:37 06/30/25 23:32 06/30/25 23:27 06/30/25 23:22 06/30/25 23:17 06/30/25 23:12 06/30/25 23:07 06/30/25 23:02 06/30/25 22:57 06/30/25 22:52 06/30/25 22:51 06/30/25 22:47 06/30/25 22:42 06/30/25 22:37 06/30/25 22:32 06/30/25 22:30 06/30/25 22:30 06/30/25 22:29 06/30/25 22:27 06/30/25 22:22 06/30/25 22:17 06/30/25 22:12 06/30/25 22:07 06/30/25 22:02 06/30/25 21:57 06/30/25 21:52 06/30/25 21:48 06/30/25 21:47 06/30/25 21:42 06/30/25 21:37 06/30/25 21:33 06/30/25 21:32 06/30/25 21:27 06/30/25 21:22 06/30/25 21:17 06/30/25 21:12 06/30/25 21:07 06/30/25 21:03 06/30/25 21:02 06/30/25 20:57 06/30/25 20:52 06/30/25 20:48 06/30/25 20:47 06/30/25 20:42 06/30/25 20:37 06/30/25 20:33 06/30/25 20:32 06/30/25 20:27 06/30/25 20:22 06/30/25 20:17 06/30/25 20:15 06/30/25 20:12 06/30/25 20:12 06/30/25 20:12 06/30/25 20:09 06/30/25 20:07 06/30/25 20:06 06/30/25 20:03 06/30/25 20:02 06/30/25 20:00 06/30/25 19:57 06/30/25 19:52 06/30/25 19:51 06/30/25 19:47 06/30/25 18:45 06/30/25 18:45 06/30/25 18:30 06/30/25 18:30 06/30/25 18:28 06/30/25 18:00 06/30/25 18:00
[2025-07-01] MEDS: PRENATAL VITAMIN 1 TAB PO SCH (08:46)
[2025-07-01] MEDS: DOCUSATE SODIUM 100 MG CAP PO SCH (08:46)
--- NOTE | 2025-07-02 06:56 | Obstetrical Progress Note ---
Date of Service July 02, 2025 Assessment & Plan (1) care following vaginal delivery: (2) Gestational hypertension: Plan 35 yo PP1 from , doing well -Meeting all pp milestones -O+/rubella immune -f/u 6 weeks for appt. Will have pt rtc 1 wk for bp and mood check, stable for dc today Subjective Ambulation: ambulating normally Voiding: no voiding problems Passing Gas:: Yes Diet Tolerance:: regular diet Lochia:: Small Pain well managed with medication Review of Systems Denies fevers, chills, n/v, HOWELL, CP, SOB Physical Exam Constitutional WD/WN, vitals as above no acute distress Respiratory normal respiratory effort, lungs clear to auscultation Cardiovascular RRR, no murmur, no edema Gastrointestinal (Abdomen) Percussion/Palpation: abdomen soft; abdomen nontender fundus firm at umbilicus and NT Musculoskeletal BLE symmetric, nonerythematous, nontender Results & Data Vital Signs (Past 12 Hours) Vital Signs Temp Pulse Pulse Resp BP BP Pulse Ox 07/02/25 00:00 98.4 F 88 18 136/85 99 07/01/25 20:25 07/01/25 19:23 98.1 F 100 H 18 128/85 100 O2 Del Method 07/02/25 00:00 Room Air 07/01/25 20:25 Room Air 07/01/25 19:23 Room Air
[2025-07-02 07:30] LABS: Hematocrit (blood only) 30.9 % (37.0-47.0); Hemoglobin 10.6 g/dl (12.0-16.0); Mean Corpuscular Hemoglobin 29.8 pg (25.0-34.0); Mean Corpuscular Volume 86.8 fL (80.0-100.0); Platelet Count 226 K/uL (130-400); RDW Standard Deviation 45.1 fL (36.4-46.3); Red Blood Count 3.56 M/uL (4.20-5.40); White Blood Count 11.37 K/ul (4.8-10.8)
[2025-07-02 08:55] VITALS: PULSE 100; RESP 16; TEMP 97.9; O2SAT 98
[2025-07-02 09:19] VITALS: BP 128/85
== END 2025-07-02 15:05 | disposition home or self-care (01) | DRG 807 ==
LOC: OPB 10:06 → 4S1 10:10 → 4E2 07-01 04:00